=== PATIENT | male | born 2000 | race Caucasian/White ===

== ENCOUNTER 2022-02-13 18:16 | Emergency (ER) | payer OTHER ==
[~2022-02-13] VITALS: Ht 180.3 cm; Wt 84.1 kg
[2022-02-13] MEDS ORDERED: ACET-2247 PO (18:18)
[2022-02-13] MEDS ORDERED: CETI-450 PO (18:18)
[2022-02-13] MEDS ORDERED: HYDROCODONE/ACETAMINOPHEN 5-325 MG TABLET PO ONE (18:45)
[2022-02-13 23:38] VITALS: BP 118/78
== END 2022-02-13 23:40 | disposition home or self-care (01) ==
LOC: EMS 18:16
DX: S09.90XA Unspecified injury of head, initial encounter (principal); S40.012A Contusion of left shoulder, initial encounter; Z79.899 Other long term (current) drug therapy; W11.XXXA Fall on and from ladder, initial encounter; Y93.89 Activity, other specified; Y92.89 Other specified places as the place of occurrence of the external cause; Y99.8 Other external cause status
CPT/HCPCS: 70450; 71045; 72125; 72128; 99285